=== PATIENT | female | born 1940 | race Caucasian/White ===

== ENCOUNTER 2016-11-20 16:46 | Inpatient (IN) | payer MEDICARE, OTHER ==
[~2016-11-20] VITALS: Ht 158.8 cm; Wt 91.2 kg
[2016-11-20 21:08] LABS: BUN/CREATININE RATIO 29 (0-10)
[2016-11-20 21:25] LABS: HEMOGLOBIN 9.5 gm/dl (12.3-15.3); RED BLOOD COUNT 4.63 M/UL (4.00-5.10); WHITE BLOOD COUNT 16.7 K/UL (4.5-11.0)
[2016-11-21] MEDS ORDERED: ANTIVERT 25MG T25 MG PO (02:52)
[2016-11-21] MEDS ORDERED: TESSALON PERLE100 MG PO (02:53)
[2016-11-21] MEDS ORDERED: SINGULAIR10 MG PO (02:53)
[2016-11-21] MEDS ORDERED: RAMIPRIL10 MG PO (02:54)
[2016-11-21] MEDS ORDERED: PROAIR HFA8.5 GM INH (02:54)
[2016-11-21] MEDS ORDERED: VITAMIN D250000 UNIT PO (02:55)
[2016-11-21] MEDS ORDERED: COLACE 100MG C100 MG PO (02:56)
[2016-11-21] MEDS ORDERED: ADVAIR 250-501 EACH INH (03:00)
[2016-11-21] MEDS ORDERED: ISOSORBIDE MONO30 MG PO (03:00)
[2016-11-21] MEDS ORDERED: VOLTAREN100 GM TOP (03:07)
[2016-11-21 03:13] LABS: HEMOGLOBIN 9.3 gm/dl (12.3-15.3); RED BLOOD COUNT 4.54 M/UL (4.00-5.10)
[2016-11-21 03:15] LABS: WHITE BLOOD COUNT 11.6 K/UL (4.5-11.0)
[2016-11-21] MEDS ORDERED: BAYER CHEWABLE81 MG PO (03:19)
[2016-11-21 03:31] LABS: BUN/CREATININE RATIO 31 (0-10)
== END 2016-11-21 15:17 | disposition home health service (06) | DRG 149 ==
LOC: ER1 16:46 → ZEROF 21:50 → MED SURG 4 21:50
PROVIDERS: Physician Assistant; ADMIT Internal Medicine
DX: R42 Dizziness and giddiness (principal); T14.8 Other injury of unspecified body region; W18.30XA Fall on same level, unspecified, initial encounter; Y92.009 Unspecified place in unspecified non-institutional (private) residence as the place of occurrence of the external cause; I25.10 Atherosclerotic heart disease of native coronary artery without angina pectoris; I10 Essential (primary) hypertension; J45.909 Unspecified asthma, uncomplicated; M19.90 Unspecified osteoarthritis, unspecified site; Z79.82 Long term (current) use of aspirin; Z79.899 Other long term (current) drug therapy; Z88.5 Allergy status to narcotic agent; Z88.8 Allergy status to other drugs, medicaments and biological substances
CPT/HCPCS: ECHO; 36415; 70450; 71010; 72125; 72128; 72131; 72170; 73080; 73610; 80053; 82550; 82553; 83735; 84439; 84443; 84484; 85025; 93005; 93306; 93880; 96374; 99285; G0378; J1885

== ENCOUNTER 2020-04-04 16:16 | Inpatient (IN) | payer MEDICARE, OTHER ==
[~2020-04-04] VITALS: Ht 160 cm; Wt 49.4 kg
[~2020-04-04 16:16] MED LIST: ADVAIR 250-501 EACH INH; ADVIL200 MG PO; ALBUTEROL1.25 MG/3 INH; AMIODARONE HCL200 MG PO; ANTIVERT 12.512.5 MG PO; ASPIRIN EC81 MG PO; ATORVASTATIN CA20 MG PO; BAYER CHEWABLE81 MG PO; CARDIZEM 60MG T60 MG PO; CARDIZEM CD120 MG PO; COLACE 100MG C100 MG PO; CYCLOBENZAPRINE10 MG PO; DOCUSATE CALCI240 MG PO; ELIQUIS 2.5 MG2.5 MG PO; HUMIBID LA TAB600 MG PO; IPRAT-ALBUT 0.5-3 ML NEB; ISOSORBIDE MONO30 MG PO; LASIX TAB 20 MG20 MG PO; LOPRESSOR 25 MG25 MG PO; MELOXICAM7.5 MG PO; MIRALAX17 GM PO; MUCOMYST 20% 4 M4 ML NEB; MYCOSTATIN100000 UTS PO; PAIN RELIEF500 M1 PO; RAMIPRIL10 MG PO; SINGULAIR10 MG PO; TESSALON PERLE100 MG PO; TIZANIDINE HCL4 M1 PO; VENTOLIN HFA 66.7 GM INH; VITAMIN D250000 UNIT PO; VOLTAREN100 GM TOP; ZOFRAN4 MG PO
[2020-04-04 17:45] LABS: HEMOGLOBIN 13.6 gm/dl (12.3-15.3); RED BLOOD COUNT 5.04 M/UL (4.00-5.10); WHITE BLOOD COUNT 8.6 K/UL (4.5-11.0)
[2020-04-05 04:48] LABS: HEMOGLOBIN 12.7 gm/dl (12.3-15.3); RED BLOOD COUNT 4.72 M/UL (4.00-5.10); WHITE BLOOD COUNT 8.5 K/UL (4.5-11.0)
[2020-04-05] MEDS ORDERED: AMIODARONE HCL100 MG PO (16:19)
[2020-04-05] MEDS ORDERED: VITAMIN D31250 MCG PO (16:21)
[2020-04-05] MEDS ORDERED: CYPROHEPTADINE H4 MG PO (16:22)
[2020-04-05] MEDS ORDERED: DAKIN'S473 M1 MC (16:24)
[2020-04-05] MEDS ORDERED: OYSTER SHELL C500 MG PO (16:26)
[2020-04-05] MEDS ORDERED: SENNA8.6 MG PO (16:28)
[2020-04-05] MEDS ORDERED: SURFAK 240 MG240 MG PO (16:28)
[2020-04-06 06:17] LABS: HEMOGLOBIN 12.7 gm/dl (12.3-15.3); RED BLOOD COUNT 4.59 M/UL (4.00-5.10); WHITE BLOOD COUNT 7.8 K/UL (4.5-11.0)
[2020-04-06 06:39] LABS: BUN/CREATININE RATIO 29 (0-10)
[2020-04-07 03:59] LABS: HEMOGLOBIN 10.3 gm/dl (12.3-15.3); RED BLOOD COUNT 3.8 M/UL (4.00-5.10)
[2020-04-07 04:46] LABS: BUN/CREATININE RATIO 26 (0-10)
[2020-04-09 13:17] LABS: HEMOGLOBIN 12.4 gm/dl (12.3-15.3); RED BLOOD COUNT 4.55 M/UL (4.00-5.10); WHITE BLOOD COUNT 5.6 K/UL (4.5-11.0)
[2020-04-09 14:32] LABS: BUN/CREATININE RATIO 10 (0-10)
--- NOTE | 2020-04-10 10:40 | NUR ---
1040- WENT TO PATIENT ROOM ACCOMPANIED BY JASE ASSAYER TO DISCUSS HEALTH INFORMATION PRIVILEDGES WITH PATIENT IN RESPONSE TO A COMPLIANT RECEIVED BY GRANDDAUGHTER, CLARISA BY TELEPHONE. PT DAUGHTER, CHRISTY REILLY PRESENT IN ROOM, AND STATED SHE WAS UPSET BECAUSE SHE COULD NOT FIND OUT ANY INFORMATION REGARDING HER MOTHER AND HER CARE. UPON REVIEW OF THE CHART IT WAS NOTED THAT PT HAD A POA AVELINA, AND THAT NO OTHER EMERGENCY CONTACTS WERE LISTED. PER DISCUSSION WITH ASSAYER, NOTED THAT DIVINA WAS WHO HANDLED EVERYTHING FOR PT AT HER RESIDENCE IN THE INTERMEDIATE, AND THAT SHE HAD BEEN IN CONTACT WITH HER SINCE ADMISSION. PATIENT IS ALERT AND ORIENTED, WITH SLIGHT DIFFICULTY IN COMMUNICATION, BUT IS ABLE TO MAKE HER OWN DECISIONS AND NEEDS KNOWN. ONCE IN THE ROOM, PATIENT WAS ASKED IF IT WAS OK TO DISCUSS HER CARE WITH HER DAUGHTER. PT NODDED AND STATED YES. WHILE IN ROOM PT ALSO STATED EMPHATICALLY "NO" WHEN ASKED PER CASE MANAGEMENT REGARDING A FEEDING TUBE.
[2020-04-10] MEDS ORDERED: ZOFRAN ODT 4 MG4 MG PO (11:07)
[2020-04-10] MEDS ORDERED: TYLENOL EL325 MG/10 PO (11:07)
[2020-04-10] MEDS ORDERED: ATIVAN0.5 MG PO (11:07)
[2020-04-10] MEDS ORDERED: ROXANOL SO10 MG/5 ML PO (11:07)
[2020-04-10] MEDS ORDERED: ENULOSE10 GM/15 M PO (11:07)
== END 2020-04-10 18:02 | DRG 177 ==
LOC: ER1 16:16 → MED SURG 4 04-05 10:17 → CDU 04-05 10:17 → MED SURG 4 04-05 20:15
PROVIDERS: Internal Medicine; Internal Medicine Infectious Disease; Preventive Medicine Occupational Medicine; ADMIT Internal Medicine
DX: J69.0 Pneumonitis due to inhalation of food and vomit (principal); J96.01 Acute respiratory failure with hypoxia; G93.41 Metabolic encephalopathy; E43 Unspecified severe protein-calorie malnutrition; E87.0 Hyperosmolality and hypernatremia; Z20.822 Contact with and (suspected) exposure to COVID-19; Z66 Do not resuscitate; R56.9 Unspecified convulsions; I25.10 Atherosclerotic heart disease of native coronary artery without angina pectoris; E87.6 Hypokalemia; R53.81 Other malaise; E78.5 Hyperlipidemia, unspecified; I95.1 Orthostatic hypotension; M51.36 Other intervertebral disc degeneration, lumbar region; I48.0 Paroxysmal atrial fibrillation; E86.0 Dehydration; R13.10 Dysphagia, unspecified; Z79.01 Long term (current) use of anticoagulants; Z95.5 Presence of coronary angioplasty implant and graft; Z98.890 Other specified postprocedural states; Z85.01 Personal history of malignant neoplasm of esophagus; Z74.01 Bed confinement status; Z88.8 Allergy status to other drugs, medicaments and biological substances; Z83.3 Family history of diabetes mellitus
CPT/HCPCS: 36415; 36600; 70450; 70551; 71045; 71250; 74230; 80048; 80053; 80202; 81001; 82140; 82550; 82553; 82803; 83605; 83690; 83874; 83880; 84484; 85025; 85652; 86140; 87086; 90471; 92610; 92611-GN; 93005; 94640; 94664; 94760; 96365; 96366; 96367; 96372; 96375; 99285; J0692; J0696; J1650; J1953; J2060; J2543; J3370; J3480; J7070; Q9967; U0002